=== PATIENT | male | born 1980 | race Caucasian/White ===

== ENCOUNTER → 2016-06-03 | Outpatient (CLI) | payer OTHER | LOC: LAB 06-02 15:10 | PROVIDERS: ATTEND Family Medicine | DX: I49.8 Other specified cardiac arrhythmias (principal); R07.2 Precordial pain; E78.2 Mixed hyperlipidemia; E13.65 Other specified diabetes mellitus with hyperglycemia; E03.4 Atrophy of thyroid (acquired) | CPT/HCPCS: 36415; 80061; 83036; 84436; 84443; 93306 ==